=== PATIENT | male | born 1950 | race Caucasian/White ===

== ENCOUNTER → 2016-07-27 | Outpatient (CLI) | payer MEDICARE, BC ==
[~2016-07-27] MED LIST: ALLO300T2 PO; AML2.5T; AMOX1TAB12 PO; ASPI-345 PO; ASPI-860 PO; DUTA0.5C PO; FLUC150T PO; HCTZ; HCTZ12.5T; LOPRESSOR; MAGN250T PO; METF500T4 PO; MTP50T PO; NFLOSA25TA; NIAC500T9 PO; OMG1KC PO; ONDAN4ODT PO; PLAN450T PO; POTA10CA2 PO; POTA99TA16 PO; PRED20TA PO; SILO8CAP
[2016-07-27 08:54] LABS: ALBUMIN 4.2 g/dL (3.4-5.0); ANION GAP 14.7 MEQ/L (3-15)
== END ==
LOC: LAB 08:02
PROVIDERS: ATTEND Internal Medicine Nephrology
DX: I10 Essential (primary) hypertension (principal); N17.9 Acute kidney failure, unspecified; Z11.59 Encounter for screening for other viral diseases
CPT/HCPCS: 36415; 80069; 82570; 84156; 84550; 86803